=== PATIENT | female | born 1950 | race Caucasian/White ===

== ENCOUNTER → 2017-02-27 | Outpatient (CLI) | payer MEDICARE ==
[~2017-02-27] MED LIST: LIDOCAINE 1%, 20ML ONE
== END | disposition home or self-care (01) ==
LOC: CFH 08:58
PROVIDERS: ATTEND Family Medicine
DX: D05.81 Other specified type of carcinoma in situ of right breast (principal); Z98.890 Other specified postprocedural states
CPT/HCPCS: 19083; 88305; 88361; G0206; J3490

== ENCOUNTER → 2017-03-26 | Outpatient (CLI) | payer MEDICARE ==
[~2017-03-26] MED LIST changes: +AMLO2.5T PO; -LIDOCAINE 1%, 20ML ONE; +LISI1TAB5 PO; +ROSU10TA PO
[2017-03-26 14:44] LABS: ASPARTATE AMINO TRANSFERASE 16 U/L (15-37); BLOOD UREA NITROGEN 18 mg/dL (7-18)
== END | disposition home or self-care (01) ==
LOC: STAR 13:27
PROVIDERS: ATTEND Surgery
DX: Z01.818 Encounter for other preprocedural examination (principal); C50.411 Malignant neoplasm of upper-outer quadrant of right female breast
CPT/HCPCS: 36415; 80053; 93005

== ENCOUNTER 2017-03-31 13:06 | Day surgery (SDC) | payer MEDICARE ==
[~2017-03-31] VITALS: Ht 160 cm; Wt 68.2 kg
[~2017-03-31 13:06] MED LIST changes: +PROPOFOL 10 MG/ML, 50ML ONE
[2017-03-31] MEDS ORDERED: LIDOCAINE 2%, 20ML ONE (13:34)
[2017-03-31] MEDS ORDERED: LACTATED RINGERS 1,000 ML IV SCH ×2 (13:37→19:00)
[2017-03-31] MEDS ORDERED: EPINEPHRINE 1 MG/ML, 1ML ONE (14:01)
[2017-03-31] MEDS ORDERED: ISOSULFAN BLUE 10 MG/ML, 5ML IV ONE (14:01)
[2017-03-31] MEDS ORDERED: BUPIVACAINE/PF 0.5% ONE (14:01)
[2017-03-31] MEDS ORDERED: CEFAZOLIN 1,000 MG ONE ×2 (14:11→14:31)
[2017-03-31] MEDS ORDERED: BACITRACIN 50,000 UNIT ONE (14:12)
[2017-03-31] MEDS ORDERED: GENTAMICIN 80 MG/2 ML ONE (14:12)
[2017-03-31 14:14] VITALS: BP 145/88
[2017-03-31] MEDS ORDERED: FENTANYL PF 250 MCG/5ML ONE (14:26)
[2017-03-31] MEDS ORDERED: MIDAZOLAM 1 MG/ML, 2ML ONE (14:26)
[2017-03-31] MEDS ORDERED: SUCCINYLCHOLINE 20 MG/ML, 10ML ONE (14:31)
[2017-03-31] MEDS ORDERED: NEOSTIGMINE 1 MG/ML, 10ML ONE (14:31)
[2017-03-31] MEDS ORDERED: PROPOFOL 10 MG/ML, 20ML ONE (14:31)
[2017-03-31] MEDS ORDERED: GLYCOPYRROLATE 0.2MG/1ML, 5ML ONE (14:31)
[2017-03-31] MEDS ORDERED: ROCURONIUM 10 MG/ML,10ML ONE (14:31)
[2017-03-31] MEDS ORDERED: DEXAMETHASONE 4 MG/ML, 1ML ONE (14:31)
[2017-03-31] MEDS ORDERED: ONDANSETRON 2MG/ML, 2ML ONE (14:31)
[2017-03-31 14:37] LABS: BASOPHILS # (AUTO) 0.08 x10^3/uL (0-0.1); BASOPHILS % (AUTO) 1 % (0-1); EOSINOPHILS # (AUTO) 0.03 x10^3/uL (0-0.4); EOSINOPHILS % (AUTO) 0 % (1-7); LYMPHOCYTES # (AUTO) 1.96 x10^3/uL (1-3.4); LYMPHOCYTES % (AUTO) 21 % (22-44); MD NO; MEAN CORPUSCULAR HEMOGLOBIN 29.1 pg (27.0-34.8); MEAN CORPUSCULAR HGB CONC 33.4 g/dL (32.4-35.8); MEAN CORPUSCULAR VOLUME 87.4 fL (80-100); MEAN PLATELET VOLUME 8.9 fL (7.4-10.4); MONOCYTES # (AUTO) 0.35 x10^3/uL (0.2-0.8); MONOCYTES % (AUTO) 4 % (2-9); NEUTROPHILS % (AUTO) 74 % (42-75); PLATELET COUNT 334 x10^3/uL (130-400); RED BLOOD COUNT 4.84 x10^6/uL (3.82-5.3); RED CELL DISTRIBUTION WIDTH 13.3 % (9.6-15.2)
[2017-03-31] MEDS ORDERED: SCOPOLAMINE PATCH, 1.5MG PATCH.TD72 TD ONE (14:37)
[2017-03-31] MEDS ORDERED: ACETAMINOPHEN 500 MG TABLET ONE (14:37)
[2017-03-31] MEDS ORDERED: GABAPENTIN 300 MG CAPSULE ONE (14:37)
[2017-03-31] MEDS ORDERED: ROPIvacaine/PF 0.5%, 30 ML ONE (15:10)
[2017-03-31] MEDS ORDERED: ROPIvacaine/PF 0.5%, 30 ML INFIL ONE (15:25)
[2017-03-31] MEDS ORDERED: OXYcodone 5 MG/5 ML ORAL.SOL UDC PO PRN (15:30)
[2017-03-31] MEDS ORDERED: LABETALOL 5MG/ML, 20ML IV PRN (15:30)
[2017-03-31] MEDS ORDERED: LORazepam 2 MG/ML, 1ML IVPush PRN (15:30)
[2017-03-31] MEDS ORDERED: MEPERIDINE/PF 25MG/0.5ML IVPush PRN (15:30)
[2017-03-31] MEDS ORDERED: METOPROLOL 1 MG/ML, 5ML IV PRN (15:30)
[2017-03-31] MEDS ORDERED: PROMETHAZINE 25 MG/ML, 1ML IV PRN (15:30)
[2017-03-31] MEDS ORDERED: FENTANYL PF 100 MCG/2ML IV PRN (15:30)
[2017-03-31] MEDS ORDERED: HYDROmorphone 2 MG/ML, 1ML ONE (16:49)
[2017-03-31] MEDS ORDERED: OXYcodone 5 MG/5 ML ORAL.SOL UDC ONE (16:49)
[2017-03-31] MEDS: HYDROmorphone 1 MG/ML, 1ML IV PRN ×3 (16:54→17:18)
[2017-03-31] MEDS ORDERED: HYDROmorphone 2 MG/ML, 1ML IV PRN (19:00)
[2017-03-31 20:47] VITALS: BP 100/63
[2017-03-31] MEDS ORDERED: OXYcodone/APAP 5/325MG TABLET PO ONE (21:00)
[2017-03-31] MEDS ORDERED: OXYC-302 PO (21:18)
[2017-03-31] MEDS ORDERED: ONDA4TAB10 PO (21:18)
[2017-03-31] MEDS ORDERED: CEPH-368 PO (21:19)
== END 2017-03-31 21:30 | disposition home or self-care (01) ==
LOC: OR 13:06 → 4NOR 17:00 → OR 21:30
PROVIDERS: ATTEND Surgery
DX: C50.911 Malignant neoplasm of unspecified site of right female breast (principal); Z90.710 Acquired absence of both cervix and uterus; Z98.890 Other specified postprocedural states; Z88.8 Allergy status to other drugs, medicaments and biological substances; Z87.891 Personal history of nicotine dependence; Z72.89 Other problems related to lifestyle
CPT/HCPCS: 19303; 36415; 38525; 38792; 85025; 88307; 88331; 88334; A9541; C1729; C1762; J0171; J0330; J0690; J1100; J1170; J1580; J2250; J2405; J2704; J2795; J3010; J3490; J7120; J2710

== ENCOUNTER → 2017-04-15 | Outpatient (CLI) | payer MEDICARE ==
[~2017-04-15] MED LIST changes: +CEPH-368 PO; +ONDA4TAB10 PO; +OXYC-302 PO; -PROPOFOL 10 MG/ML, 50ML ONE
== END | disposition home or self-care (01) ==
LOC: ROC 09:22
PROVIDERS: ATTEND Radiology Radiation Oncology
DX: C50.911 Malignant neoplasm of unspecified site of right female breast (principal); N64.89 Other specified disorders of breast; I10 Essential (primary) hypertension; E78.5 Hyperlipidemia, unspecified
CPT/HCPCS: 99214; G0463

== ENCOUNTER → 2017-04-29 | Outpatient (CLI) | payer MEDICARE ==
[~2017-04-29] MED LIST changes: +OMNIPAQUE 350 MG/ML, 100ML BOTTLE ONE
== END ==
LOC: PETCFH 08:12
PROVIDERS: ATTEND Radiology Radiation Oncology
DX: C50.911 Malignant neoplasm of unspecified site of right female breast (principal); M51.37 Other intervertebral disc degeneration, lumbosacral region; K44.9 Diaphragmatic hernia without obstruction or gangrene; I10 Essential (primary) hypertension
CPT/HCPCS: 71260; 74177; 78306; A9503; Q9967

== ENCOUNTER → 2018-03-04 | Outpatient (CLI) | payer MEDICARE ==
[~2018-03-04] MED LIST changes: -AMLO2.5T PO; +AMLO2.5T3 PO; -OMNIPAQUE 350 MG/ML, 100ML BOTTLE ONE
== END | disposition home or self-care (01) ==
LOC: CFH 09:48
PROVIDERS: ATTEND Nurse Practitioner Family
DX: Z12.31 Encounter for screening mammogram for malignant neoplasm of breast (principal); Z85.3 Personal history of malignant neoplasm of breast; Z90.11 Acquired absence of right breast and nipple
CPT/HCPCS: 77067

== ENCOUNTER → 2018-03-31 | Outpatient (CLI) | payer MEDICARE ==
[~2018-03-31] MED LIST changes: +ANAS1TAB PO; +ASCO-96 PO; +CHOL10003 PO; +CITA20TA6 PO; +LACT1CAP37 PO; +LISI-170 PO; +MAGN250T8 PO
== END | disposition home or self-care (01) ==
LOC: CFH 07:18
PROVIDERS: ATTEND Nurse Practitioner Family
DX: Z12.2 Encounter for screening for malignant neoplasm of respiratory organs (principal); J98.11 Atelectasis; J84.10 Pulmonary fibrosis, unspecified; Z87.891 Personal history of nicotine dependence
CPT/HCPCS: G0297

== ENCOUNTER → 2018-04-02 | Outpatient (CLI) | payer MEDICARE ==
[2018-04-02 10:39] LABS: BASOPHILS # (AUTO) 0.05 x10^3/uL (0-0.1); BASOPHILS % (AUTO) 1 % (0-1); EOSINOPHILS # (AUTO) 0.06 x10^3/uL (0-0.4); EOSINOPHILS % (AUTO) 1 % (1-7); LYMPHOCYTES # (AUTO) 0.96 x10^3/uL (1-3.4); LYMPHOCYTES % (AUTO) 13 % (22-44); MD NO; MEAN CORPUSCULAR HEMOGLOBIN 29.5 pg (27.0-34.8); MEAN CORPUSCULAR HGB CONC 33.8 g/dL (32.4-35.8); MEAN CORPUSCULAR VOLUME 87.5 fL (80-100); MEAN PLATELET VOLUME 8.2 fL (7.4-10.4); MONOCYTES # (AUTO) 0.32 x10^3/uL (0.2-0.8); MONOCYTES % (AUTO) 4 % (2-9); NEUTROPHILS # (AUTO) 6.18 x10^3/uL (1.8-6.8); NEUTROPHILS % (AUTO) 82 % (42-75); PLATELET COUNT 325 x10^3/uL (130-400); RED BLOOD COUNT 5.12 x10^6/uL (3.82-5.3); RED CELL DISTRIBUTION WIDTH 13.2 % (9.6-15.2)
[2018-04-02 10:45] LABS: ALANINE AMINOTRANSFERASE 28 U/L (12-78); ANION GAP 4 mmol/L (5-15); CALCIUM 8.9 mg/dL (8.5-10.1); CHLORIDE 108 mmol/L (98-107)
[2018-04-02 10:47] LABS: ALKALINE PHOSPHATASE 46 U/L (45-117); BILIRUBIN,TOTAL 1.1 mg/dL (0.2-1.0); CREATININE 0.77 mg/dL (0.55-1.02)
== END | disposition home or self-care (01) ==
LOC: STAR 09:26
PROVIDERS: ATTEND Plastic Surgery
DX: Z01.818 Encounter for other preprocedural examination (principal); T85.44XS Capsular contracture of breast implant, sequela; D05.11 Intraductal carcinoma in situ of right breast; X58.XXXS Exposure to other specified factors, sequela
CPT/HCPCS: 36415; 80053; 85025; 93005

== ENCOUNTER 2018-04-06 13:51 | Day surgery (SDC) | payer MEDICARE ==
[2018-04-02 10:02] VITALS: BP 127/76
[~2018-04-06] VITALS: Ht 157.5 cm; Wt 58.7 kg
[2018-04-06] MEDS ORDERED: LACTATED RINGERS 1,000 ML IV SCH (14:45)
[2018-04-06] MEDS ORDERED: FENTANYL PF 250 MCG/5ML ONE (16:56)
[2018-04-06] MEDS ORDERED: MIDAZOLAM 1 MG/ML, 2ML ONE (16:56)
[2018-04-06] MEDS ORDERED: CEFAZOLIN 1,000 MG ONE ×2 (17:00→17:16)
[2018-04-06] MEDS ORDERED: GENTAMICIN 80 MG/2 ML ONE (17:00)
[2018-04-06] MEDS ORDERED: SODIUM BICARBONATE 1 MEQ/ML, 50ML VIAL ONE (17:01)
[2018-04-06] MEDS ORDERED: EPINEPHRINE 1 MG/ML, 1ML ONE (17:01)
[2018-04-06] MEDS ORDERED: BACITRACIN 50,000 UNIT ONE (17:01)
[2018-04-06] MEDS ORDERED: LIDOCAINE-MPF 2% ,5ML ONE (17:03)
[2018-04-06] MEDS ORDERED: PROPOFOL 10 MG/ML, 50ML ONE (17:16)
[2018-04-06] MEDS ORDERED: PROPOFOL 10 MG/ML, 20ML ONE (17:16)
[2018-04-06] MEDS ORDERED: GLYCOPYRROLATE 0.2MG/1ML, 5ML ONE (17:16)
[2018-04-06] MEDS ORDERED: ONDANSETRON 2MG/ML, 2ML ONE (17:16)
[2018-04-06] MEDS ORDERED: SUCCINYLCHOLINE 20 MG/ML, 10ML ONE (17:16)
[2018-04-06] MEDS ORDERED: ROCURONIUM 10 MG/ML,10ML ONE (17:16)
[2018-04-06] MEDS ORDERED: DEXAMETHASONE 4 MG/ML, 1ML ONE (17:16)
[2018-04-06] MEDS ORDERED: ACETAMINOPHEN 325 MG TABLET PO PRN (18:30)
[2018-04-06] MEDS ORDERED: ONDANSETRON 2MG/ML, 2ML IV PRN (18:30)
[2018-04-06] MEDS ORDERED: MIDAZOLAM 1 MG/ML, 2ML IV PRN (18:30)
[2018-04-06] MEDS ORDERED: ONDANSETRON ODT 8 MG PO PRN (18:30)
[2018-04-06] MEDS ORDERED: DIPHENHYDRAMINE 50 MG/ML, 1ML IVPush PRN (18:30)
[2018-04-06] MEDS ORDERED: OXYcodone 5 MG/5 ML ORAL.SOL UDC PO PRN (18:30)
[2018-04-06] MEDS ORDERED: hydrALAzine 20 MG/ML, 1ML IV PRN (18:30)
[2018-04-06] MEDS ORDERED: EPHEDRINE 50 MG/ML, 1ML IM PRN (18:30)
[2018-04-06] MEDS ORDERED: PROMETHAZINE 25 MG SUPP PR PRN (18:30)
[2018-04-06] MEDS ORDERED: METOPROLOL 1 MG/ML, 5ML IV PRN (18:30)
[2018-04-06] MEDS ORDERED: PROMETHAZINE 12.5 MG SUPP PR PRN (18:30)
[2018-04-06] MEDS ORDERED: FENTANYL PF 100 MCG/2ML IV PRN (18:30)
[2018-04-06] MEDS ORDERED: MORPHINE SULFATE 4 MG/ML, 1ML IVPush PRN (18:30)
[2018-04-06] MEDS ORDERED: MEPERIDINE/PF 25MG/0.5ML IVPush PRN (18:30)
[2018-04-06] MEDS ORDERED: PROMETHAZINE 25 MG/ML, 1ML IV PRN (18:30)
[2018-04-06] MEDS ORDERED: EPHEDRINE 50 MG/ML, 1ML IVPush PRN (18:30)
[2018-04-06] MEDS ORDERED: MEPERIDINE/PF 25MG/0.5ML ONE (19:10)
[2018-04-06] MEDS ORDERED: OXYcodone 5 MG/5 ML ORAL.SOL UDC ONE (19:10)
[2018-04-06] MEDS ORDERED: FENTANYL PF 100 MCG/2ML ONE (19:29)
== END 2018-04-06 23:15 | disposition home or self-care (01) ==
LOC: OUT 13:51 → 4NOR 20:45 → OUT 23:15
PROVIDERS: ATTEND Plastic Surgery
DX: T85.44XA Capsular contracture of breast implant, initial encounter (principal); N65.1 Disproportion of reconstructed breast; Y83.8 Other surgical procedures as the cause of abnormal reaction of the patient, or of later complication, without mention of misadventure at the time of the procedure; Y92.89 Other specified places as the place of occurrence of the external cause; Z85.3 Personal history of malignant neoplasm of breast; Z87.891 Personal history of nicotine dependence; Z88.1 Allergy status to other antibiotic agents
CPT/HCPCS: 11970; 15777; 19340; 19366; 19371; 20926; C1729; C1762; C1789; J0171; J0330; J0690; J1100; J1580; J2175; J2250; J2405; J2704; J3010; J3490; J7120; G0378

== ENCOUNTER → 2019-03-14 | Outpatient (CLI) | payer MEDICARE ==
[~2019-03-14] MED LIST changes: -AMLO2.5T3 PO; +AMLO2.5T5 PO; +LISI1TAB19 PO; -LISI1TAB5 PO; -ROSU10TA PO; +ROSU10TA2 PO
== END | disposition home or self-care (01) ==
LOC: CFH 12:02
PROVIDERS: ATTEND Internal Medicine Hematology & Oncology
DX: Z12.31 Encounter for screening mammogram for malignant neoplasm of breast (principal); M85.88 Other specified disorders of bone density and structure, other site; Z90.11 Acquired absence of right breast and nipple; Z98.82 Breast implant status; Z78.0 Asymptomatic menopausal state
CPT/HCPCS: 77063; 77067; 77080

== ENCOUNTER 2019-04-05 08:18 | Outpatient (CLI) | payer MEDICARE | END 2019-04-05 23:59 | disposition home or self-care (01) | LOC: CFH 08:18 | PROVIDERS: ATTEND Licensed Practical Nurse | DX: Z12.2 Encounter for screening for malignant neoplasm of respiratory organs (principal); K44.9 Diaphragmatic hernia without obstruction or gangrene; I70.0 Atherosclerosis of aorta; F17.211 Nicotine dependence, cigarettes, in remission | CPT/HCPCS: G0297 ==

== ENCOUNTER 2019-07-12 08:06 | Outpatient (CLI) | payer MEDICARE ==
[2019-07-12] MEDS ORDERED: OMNIPAQUE 350 MG/ML, 100ML BOTTLE ONE (09:06)
== END 2019-07-12 23:59 | disposition home or self-care (01) ==
LOC: RAD 08:06
PROVIDERS: ATTEND Internal Medicine Hematology & Oncology
DX: C50.311 Malignant neoplasm of lower-inner quadrant of right female breast (principal); M85.80 Other specified disorders of bone density and structure, unspecified site; K44.9 Diaphragmatic hernia without obstruction or gangrene; K76.0 Fatty (change of) liver, not elsewhere classified
CPT/HCPCS: 74177; 78306; A9503; Q9967

== ENCOUNTER 2019-07-18 07:02 | Outpatient (CLI) | payer MEDICARE | END 2019-07-18 23:59 | disposition home or self-care (01) | LOC: CFH 07:02 | PROVIDERS: ATTEND Internal Medicine Cardiovascular Disease | DX: I08.3 Combined rheumatic disorders of mitral, aortic and tricuspid valves (principal); I31.3 Pericardial effusion (noninflammatory); I10 Essential (primary) hypertension | CPT/HCPCS: 93306; 93356 ==

== ENCOUNTER → 2019-08-09 | Outpatient (CLI) | payer MEDICARE ==
[~2019-08-09] MED LIST changes: +LIDOCAINE-MPF 1%, 5ML ONE
== END | disposition home or self-care (01) ==
LOC: RAD 12:24
PROVIDERS: ATTEND Genetic Counselor, MS
DX: E04.1 Nontoxic single thyroid nodule (principal)
CPT/HCPCS: 10005; 88172; 88173

== ENCOUNTER 2020-03-20 07:11 | Outpatient (CLI) | payer MEDICARE ==
[~2020-03-20 07:11] MED LIST changes: -LIDOCAINE-MPF 1%, 5ML ONE; -LISI1TAB19 PO; +LISI1TAB39 PO
== END 2020-03-20 23:59 | disposition home or self-care (01) ==
LOC: CFH 07:11
PROVIDERS: ATTEND Internal Medicine Hematology & Oncology
DX: Z02.9 Encounter for administrative examinations, unspecified (principal)

== ENCOUNTER 2020-03-21 07:12 | Outpatient (CLI) | payer MEDICARE | END 2020-03-21 23:59 | disposition home or self-care (01) | LOC: CFH 07:12 | PROVIDERS: ATTEND Internal Medicine Hematology & Oncology | DX: Z12.31 Encounter for screening mammogram for malignant neoplasm of breast (principal) | CPT/HCPCS: 77063; 77067 ==